=== PATIENT | male | born 1940 | race Caucasian/White ===

== ENCOUNTER 2018-01-12 09:16 | Emergency (ER) | payer OTHER ==
[~2018-01-12] VITALS: Ht 182.9 cm; Wt 116.0 kg
[2018-01-12 09:20] VITALS: BP 164/90; PULSE 88; RESP 16; TEMP 97.3; O2SAT 96
[2018-01-12] MEDS ORDERED: MULTTAB67 PO (09:46)
[2018-01-12] MEDS ORDERED: ASPI81TA23 PO (09:46)
[2018-01-12] MEDS ORDERED: PLAV75TA29 PO (09:46)
[2018-01-12] MEDS ORDERED: LIPI40TA PO (09:46)
[2018-01-12] MEDS ORDERED: LOSA25TA PO (09:46)
[2018-01-12] MEDS ORDERED: METO25TA3 PO (09:46)
[2018-01-12] MEDS ORDERED: DILT120T PO (09:46)
[2018-01-12] MEDS ORDERED: ACETAMINOPHEN/HYDROcodone 325 MG/5 MG TAB PO ONE (10:00)
[2018-01-12] MEDS ORDERED: AMOX500T PO (10:02)
[2018-01-12] MEDS ORDERED: NORC5TAB PO (10:02)
--- NOTE | 2018-01-12 10:02 | PD ---
HPI Chief Complaint: Nosebleed Time Seen by Provider: 09:30 Travel History International Travel<30 days: No Contact w/Intl Traveler<30days: No Traveled to known affect area: No History of Present Illness HPI 77-year-old male complains of nosebleed. Patient states that history of his nose against an object 2 days ago. Patient does not think that he has any bony injury to the nose. Patient has history of CAD, status post stent placement, on Plavix. Patient states that he had a short period of nosebleed at that time. Patient started having nosebleeds since this morning. Patient denies any headache. Patient denies any chest pain or shortness of breath. Patient denies abdominal pain. PFSH Past Medical History Cardiac Catheterization: Yes High Cholesterol: Yes Coronary Artery Disease: Yes Diabetes: No (borderline) Hypertension: Yes Myocardial Infarction: Yes Tetanus Vaccination: < 5 Years Influenza Vaccination: Yes Past Surgical History Coronary Stent: Yes (x2 stents) Social History Alcohol Use: No Tobacco Use: No (quit 20-25 yrs ago smoked cigs) Substance Use: No Allergies-Medications (Allergen,Severity, Reaction): Coded Allergies: No Known Allergies (Unverified , 01/12/18) Reported Meds & Prescriptions Reported Meds & Active Scripts Active Reported Multiple Vitamin 1 Tab 1 Tab PO DAILY Diltiazem (Diltiazem HCl) 120 Mg Tab 120 Mg PO DAILY Metoprolol Tartrate 25 Mg Tab 25 Mg PO DAILY Losartan (Losartan Potassium) 25 Mg Tab 25 Mg PO DAILY Aspirin EC (Aspirin) 81 Mg Tabdr 81 Mg PO DAILY Plavix (Clopidogrel Bisulfate) 75 Mg Tab 75 Mg PO DAILY Lipitor (Atorvastatin Calcium) 40 Mg Tab 40 Mg PO HS Review of Systems General / Constitutional: No: Fever Eyes: No: Visual changes HENT: Positive: Nosebleed, No: Headaches Cardiovascular: No: Chest Pain or Discomfort Respiratory: No: Shortness of Breath Gastrointestinal: No: Abdominal Pain Genitourinary: No: Dysuria Musculoskeletal: No: Pain Skin: No Rash Neurologic: No: Weakness Psychiatric: No: Depression Endocrine: No: Polydipsia Hematologic/Lymphatic: No: Easy Bruising Physical Exam Narrative GENERAL: Well-nourished, well-developed patient. SKIN: Focused skin assessment warm/dry. HEAD: Normocephalic. EYES: No scleral icterus. No injection or drainage. Patient has active nosebleed from the left side. No tenderness on palpation bony structures of the nose. NECK: Supple, trachea midline. No JVD or lymphadenopathy. CARDIOVASCULAR: Regular rate and rhythm without murmurs, gallops, or rubs. RESPIRATORY: Breath sounds equal bilaterally. No accessory muscle use. GASTROINTESTINAL: Abdomen soft, non-tender, nondistended. MUSCULOSKELETAL: No cyanosis, or edema. BACK: Nontender without obvious deformity. No CVA tenderness. Neurologic exam normal. Data Data Last Documented VS Vital Signs Date Time Temp Pulse Resp B/P (MAP) Pulse Ox O2 Delivery O2 Flow Rate FiO2 01/12/18 09:37 16 01/12/18 09:20 97.3 88 164/90 (114) 96 Orders Orders Acetamin-Hydrocod 325-5 Mg (Bowler 5-325 (01/12/18 10:00) [facility] Medical Decision Making Medical Screen Exam Complete: Yes Emergency Medical Condition: Yes Differential Diagnosis Differential diagnosis including epistaxis, nose fracture. Narrative Course 77-year-old male with nosebleed. Patient has history of CAD, status post stent placement, on Plavix. Diagnosis Primary Impression: Epistaxis Patient Instructions: General Instructions Additional Instructions: Take medications as directed. Follow-up with ENT or return in 3 days for packing removal. Return immediately if persistent nosebleed. Med/Other Pt SpecificInfo: Prescription(s) given Scripts Amoxicillin (Amoxicillin) 500 Mg Tab 500 MG PO TID for Infection, #15 TAB 0 Refills Prov: Cullen De La Cruz MD 01/12/18 Hydrocodone-Acetaminophen (Bowler) 5 Mg-325 Mg Tab 1 TAB PO Q6H Y for PAIN, #12 TAB 0 Refills Prov: Cullen De La Cruz MD 01/12/18 Disposition: 01 DISCHARGE HOME Condition: Stable Cullen De La Cruz MD Jan 12, 2018 10:02
[2018-01-12 10:38] VITALS: RESP 16
[2018-01-12 10:47] VITALS: BP 136/78
== END 2018-01-12 10:48 | disposition home or self-care (01) ==
LOC: PHED 09:16
DX: R04.0 Epistaxis (principal); Z79.02 Long term (current) use of antithrombotics/antiplatelets; Z95.5 Presence of coronary angioplasty implant and graft; I25.10 Atherosclerotic heart disease of native coronary artery without angina pectoris; E78.00 Pure hypercholesterolemia, unspecified; I10 Essential (primary) hypertension; I25.2 Old myocardial infarction
CPT/HCPCS: 30901

== ENCOUNTER 2018-01-14 13:56 | Emergency (ER) | payer OTHER ==
[~2018-01-14] VITALS: Ht 182.9 cm; Wt 117.0 kg
[~2018-01-14 13:56] MED LIST: AMOX500T PO; ASPI81TA23 PO; DILT120T PO; LIPI40TA PO; LOSA25TA PO; METO25TA3 PO; MULTTAB67 PO; NORC5TAB PO; PLAV75TA29 PO
[2018-01-14 14:13] VITALS: BP 146/70; PULSE 71; RESP 16; TEMP 98.2; O2SAT 96
--- NOTE | 2018-01-14 14:43 | PD ---
HPI Chief Complaint: ENT Complaint Time Seen by Provider: 14:30 Travel History International Travel<30 days: No Contact w/Intl Traveler<30days: No Traveled to known affect area: No History of Present Illness HPI 77-year-old male presents to the emergency department for removal of nasal tampon to the left nare. Patient was seen in the emergency department on January 12, 2018 for epistaxis. Patient is currently on Plavix. Nasal tampon was applied with resolution of bleed. Patient was instructed to return here in 2-3 days for removal. The patient states that he did have a lot of pressure, but this has resolved. He denies any complaints at this time. However, he is concerned that the bleed will restart. No current pain. Mild severity. PFSH Past Medical History Cardiac Catheterization: Yes High Cholesterol: Yes Coronary Artery Disease: Yes Hypertension: Yes Myocardial Infarction: Yes Past Surgical History Coronary Stent: Yes (x2 stents) Social History Alcohol Use: No Tobacco Use: No (quit 20-25 yrs ago smoked cigs) Substance Use: No Allergies-Medications (Allergen,Severity, Reaction): Coded Allergies: No Known Allergies (Unverified , 01/14/18) Reported Meds & Prescriptions Reported Meds & Active Scripts Active Amoxicillin 500 Mg Tab 500 Mg PO TID [place] (Hydrocodone-Acetaminophen) 5 Mg-325 Mg Tab 1 Tab PO Q6H PRN Reported Multiple Vitamin 1 Tab 1 Tab PO DAILY Diltiazem (Diltiazem HCl) 120 Mg Tab 120 Mg PO DAILY Metoprolol Tartrate 25 Mg Tab 25 Mg PO DAILY Losartan (Losartan Potassium) 25 Mg Tab 25 Mg PO DAILY Aspirin EC (Aspirin) 81 Mg Tabdr 81 Mg PO DAILY Plavix (Clopidogrel Bisulfate) 75 Mg Tab 75 Mg PO DAILY Lipitor (Atorvastatin Calcium) 40 Mg Tab 40 Mg PO HS Review of Systems Except as stated in HPI: all other systems reviewed are Neg Physical Exam Narrative GENERAL: Well-nourished, well-developed elderly male patient, afebrile SKIN: Focused skin assessment warm/dry. HEAD: Normocephalic. Atraumatic ENT: Mucosa pink and moist. No erythema or exudates. No uvular edema. No uvular , palatal, or tonsillar deviation. Airway patent. Nasal tampon is noted to the left nare. This is removed without difficulty. There is mild blood noted in the left nare. No active bleed. Bilateral tympanic membranes clear without erythema or perforation. EYES: No scleral icterus. No injection or drainage. NECK: Supple, trachea midline. No JVD or lymphadenopathy. CARDIOVASCULAR: Regular rate and rhythm without murmurs, gallops, or rubs. RESPIRATORY: Breath sounds equal bilaterally. No accessory muscle use. Lung sounds are clear to auscultation peer MUSCULOSKELETAL: No cyanosis, or edema. Data Data Last Documented VS Vital Signs Date Time Temp Pulse Resp B/P (MAP) Pulse Ox O2 Delivery O2 Flow Rate FiO2 01/14/18 14:13 98.2 71 16 146/70 (95) 96 Orders Orders Oxymetazoline 0.05% Hector Rhodelia (Afrin 0.0 (01/14/18 15:00) [facility] Medical Decision Making Medical Screen Exam Complete: Yes Emergency Medical Condition: Yes Medical Record Reviewed: Yes Differential Diagnosis Anterior bleed versus posterior bleed versus nasal packing removal Narrative Course 77-year-old male presents to the emergency department for evaluation of removal removal nasal packing to the left nare. This is removed. There is a mild amount of blood noted up in the nare. The patient will be watched for approximately 30 minutes to make sure bleed does not restart. Patient did have some mild bleeding from the nares after the packing removal. 2 sprays of Afrin were placed in the left nare and patient was instructed to hold pressure. Upon reexamination, there is no active bleeding. Patient states he is feeling better. Patient is instructed to hold pressure if bleeding restarts. He is to return here if he cannot get the bleeding to stop. He is instructed he can use Afrin up to twice daily, 2 sprays in the left nare for no more than 2 days. However, if he cannot get bleeding to stop, he must return for packing placement. He verbalizes agreement. He has an appointment his primary care physician on Tuesday that he will follow-up with. Diagnosis Primary Impression: Encounter for removal of nasal packing Referrals: Tristin Christine MD call for appointment Primary Care Physician call for appointment Patient Instructions: Epistaxis (DC), General Instructions Additional Instructions: If bleeding restarts, hold pressure for 30 minutes without stopping. You may apply Afrin up to 2 times daily, 2 sprays in the nare, for a maximum of 2 days. If you cannot get the bleeding to stop, you must return to the emergency department for placement of nasal packing. Follow-up with your physician on Tuesday as scheduled. Med/Other Pt SpecificInfo: No Change to Meds Disposition: 01 DISCHARGE HOME Condition: Stable Betty Yeboah Jan 14, 2018 14:43
[2018-01-14] MEDS ORDERED: OXYMETAZOLINE HCL 0.05% 15 ML NASAL SPRAY NASAL ONE (15:00)
== END 2018-01-14 15:39 | disposition home or self-care (01) ==
LOC: PHEFT 13:56
DX: Z48.00 Encounter for change or removal of nonsurgical wound dressing (principal)
CPT/HCPCS: 99281